=== PATIENT | male | born 2005 | race Caucasian/White ===

== ENCOUNTER 2024-06-21 13:38 | Emergency (ER) | payer OTHER, SELFPAY ==
[2024-06-21 13:39] VITALS: BP 131/60; PULSE 65; RESP 14; TEMP 36.4; O2SAT 100; BMI 19.4
[2024-06-21] MEDS: Famotidine 20 MG Tablet 40 MG PO (14:49)
[2024-06-21] MEDS: predniSONE 20 MG Tablet 40 MG PO (14:50)
[2024-06-21] MEDS: DiphenhydrAMINE 25 MG Capsule PO (14:51)
--- NOTE | 2024-06-21 15:05 | EDS_ITS ---
HPI <ADAMS Ceballos - Last Filed: 06/21/24 17:59> History of Present Illness Chief Complaint: Allergic Reaction Narrative Narrative: Patient presenting today due to an allergic reaction that started yesterday around 6 PM. He reports that he broke out in hives, he is not sure what caused his reaction. He denies any new medications, new food exposures, new detergents/soaps/body products. He reports mild left upper lip swelling. He did go to urgent care this afternoon, he reported feeling short of breath on the way to urgent care and reportedly had wheezing on exam and was given an epi shot while there at 1:25 PM. He was then transported here for evaluation. He reports that the shortness of breath has improved. He has also had a nonproductive cough over the last several days and does smoke a vape daily. He has a PMH of Crohn's disease, anxiety, and depression. He denies fevers, chills, abdominal pain, chest pain, nausea, and vomiting. PFSH <ADAMS Ceballos - Last Filed: 06/21/24 17:59> PFSH Home Medications ?Medication ?Instructions ?Recorded ?Last Taken ?Type diphenhydramine HCl 25 mg capsule 25 mg PO TID PRN allergic reaction 06/21/24 Unknown Rx (Benadryl) 4 days #12 caps epinephrine 0.3 mg/0.3 mL 0.3 mg (0.3 mL) IM Q10M PRN PRN 06/21/24 Unknown Rx injection, auto-injector anaphylaxis #2 ea famotidine 20 mg tablet 20 mg PO BID 4 days #8 TABLETS 06/21/24 Unknown Rx prednisone 20 mg tablet 40 mg (2 x 20 mg) PO DAILY 5 days 06/21/24 Unknown Rx #10 tabs Allergy/AdvReac Type Severity Reaction Status Date / Time amoxicillin Allergy RASH Verified 06/21/24 13:40 Penicillins (PCN) Allergy RASH Verified 06/21/24 13:40 Social History Smoking Status: Never smoker ROS <ADAMS Ceballos - Last Filed: 06/21/24 17:59> ROS ED Constitutional Constitutional ED: Denies chills or fever(s) Cardiovascular Cardiovascular: Denies chest pain Respiratory/Chest Respiratory/Chest: Denies cough, dyspnea or wheezing Gastrointestinal Gastrointestinal: Denies abdominal pain, nausea or vomiting Musculoskeletal Musculoskeletal: Denies arthralgias or myalgias Integumentary Reports rash Neurologic Neurologic: Denies weakness Allergic/Immunologic Allergic/Immunologic ED: Reports lip swelling and urticaria; Denies mouth swelling or tongue swelling EXAM <ADAMS Ceballos - Last Filed: 06/21/24 17:59> Physical Exam Const Vital Signs: 06/21/24 13:39 06/21/24 15:56 06/21/24 15:56 Temperature 97.6 F L 97.5 F L 97.5 F L Temperature Source Oral Oral Pulse Rate 65 84 84 Respiratory Rate 14 16 16 Blood Pressure 131/60 H 106/79 106/79 Blood Pressure Mean 83 88 88 Pulse Ox 100 100 100 Oxygen Delivery Method Room Air Room Air Positive well nourished, well developed and no apparent distress General Appearance ED: well developed HEENT Reports normocephalic and head/scalp atraumatic HEENT Narrative: No significant lip swelling, no tongue swelling, uvula midline, no drooling Mouth ED: Yes moist mucous membranes normal Eyes PERRL and EOMs intact bilaterally Neck full ROM and supple Chest Wall inspection of chest normal Resp normal respiratory effort and clear to auscultation bilaterally Cardio regular rate and regular rhythm GI soft to palpation, non-tender, non-distended and no masses Back/Spine normal ROM and normal to inspection Extremity normal to inspection and full ROM Neuro oriented x3, CN's II-XII intact bilaterally, moves all extremities, no focal motor deficits and no sensory deficits noted Sensorium / Orientation: awake and alert Psych mental status grossly normal and thought process normal Skin Skin Narrative: Generalized urticarial rash <Dr. See Demarco DO - Last Filed: 06/21/24 22:30> Physical Exam Const Vital Signs: 06/21/24 13:39 06/21/24 15:56 06/21/24 15:56 Temperature 97.6 F L 97.5 F L 97.5 F L Temperature Source Oral Oral Pulse Rate 65 84 84 Respiratory Rate 14 16 16 Blood Pressure 131/60 H 106/79 106/79 Blood Pressure Mean 83 88 88 Pulse Ox 100 100 100 Oxygen Delivery Method Room Air Room Air MDM <ADAMS Ceballos - Last Filed: 06/21/24 17:59> [facility] Narrative Medical decision making narrative: Patient presenting today due to an allergic reaction that started yesterday evening around 6 PM. He broke out in hives, and is unclear what triggered his rash. He has never had this happen before. He began feeling slightly short of breath on the way to urgent care today and reportedly was wheezy on exam there and was given a shot of epinephrine. He is now here for evaluation. His vitals are unremarkable. He is well-appearing and in no acute distress. He denies feeling short of breath or having any abdominal pain, nausea, or vomiting. No angioedema on exam. Patient was given Benadryl, Pepcid, and prednisone. On reexamination he does report some improvement of his symptoms. His rash is slightly improved. He was observed here for over 2 hours and is doing well. I will give him prescriptions for an EpiPen, prednisone, Benadryl, and Pepcid. Re commended he follow-up with his PCP to have allergy testing performed. He will be discharged home in stable condition. Return instructions were discussed. <Dr. See Demarco, DO - Last Filed: 06/21/24 22:30> [facility] Narrative Medical decision making narrative: Patient presenting today due to an allergic reaction that started yesterday evening around 6 PM. He broke out in hives, and is unclear what triggered his rash. He has never had this happen before. He began feeling slightly short of breath on the way to urgent care today and reportedly was wheezy on exam there and was given a shot of epinephrine. He is now here for evaluation. His vitals are unremarkable. He is well-appearing and in no acute distress. He denies feeling short of breath or having any abdominal pain, nausea, or vomiting. No angioedema on exam. Patient was given Benadryl, Pepcid, and prednisone. On reexamination he does report some improvement of his symptoms. His rash is slightly improved. He was observed here for over 2 hours and is doing well. I will give him prescriptions for an EpiPen, prednisone, Benadryl, and Pepcid. Recommended he follow-up with his PCP to have allergy testing performed. He will be discharged home in stable condition. Return instructions were esther wills Attending note: I have personally performed a face to face assessment of the patient and have reviewed the [facility] note. I personally made/approved the management plan and take responsibility for the patient management. I performed a substantive portion of the visit including all aspects of the following. My min findings include: Sent from urgent care after given epinephrine. He is noted urticarial lesions pruritic started on his neck then diffusely spread. Increasing dyspnea today that led to him going to urgent care. He states he had left lower lip swelling. Given epinephrine. Symptoms are improving. Rash has not improved. No change in soaps or detergents no new medications. No history of similar. Does have history of ulcerative colitis per mother. Exam diffuse urticarial lesions with papules neck arms torso. There is no lip or tongue swelling. I added prednisone, Benadryl, Pepcid. He is monitored no progression of symptoms. Discharged with medications with outpatient follow-up. Discharge Plan Triage Chief Complaint: Allergic Reaction ED Midlevel Provider: Sandra Pena ED Provider: See Demarco Dx/Rx/DC Orders Clinical Impression: Allergic reaction Instructions: ED General Allergic Reactions, ED Anaphylaxis Prescriptions: New prednisone 20 mg tablet 40 mg PO DAILY 5 Days Qty: 10 0RF diphenhydramine HCl [Benadryl] 25 mg capsule 25 mg PO TID PRN (Reason: allergic reaction) 4 Days Qty: 12 0RF epinephrine 0.3 mg/0.3 mL auto-injector 0.3 mg IM Q10M PRN PRN (Reason: anaphylaxis) Qty: 2 0RF Rx Instructions: for 2 doses famotidine 20 mg tablet 20 mg PO BID 4 Days Qty: 8 0RF Stand Alone Forms: ED Work / School Excuse Primary Care Provider: Care Physician,No Primary Referrals: Care Physician,No Primary [Primary Care Provider] - Activity Restrictions/Additional Instructions: Please follow-up with your PCP, return for any worsening of your symptoms. Print Language: [place] Disposition Disposition: Home, Self Care Discharge Date/Time: 06/21/24 15:57
[2024-06-21 15:56] VITALS: BP 106/79; PULSE 84; RESP 16; TEMP 36.4; O2SAT 100
== END 2024-06-21 15:57 | disposition home or self-care (01) ==
PROVIDERS: Emergency Provider Emergency Medicine; Visit Provider Emergency Medicine
DX: L50.0 Allergic urticaria (principal); K50.90 Crohn's disease, unspecified, without complications; F41.9 Anxiety disorder, unspecified; F32.A Depression, unspecified; F17.290 Nicotine dependence, other tobacco product, uncomplicated; Z88.0 Allergy status to penicillin
CPT/HCPCS: 99285